=== PATIENT | female | born 2000 | race Caucasian/White ===

== ENCOUNTER 2022-10-11 14:19 | Emergency (ER) | payer SELFPAY ==
[2022-10-11 14:26] VITALS: BP 151/108; PULSE 113; O2SAT 98
--- NOTE | 2022-10-11 14:34 | ED.RECABL ---
HPI - Recheck/Abnormal Lab/Rx <SONU Andersen - Last Filed: 10/11/22 15:09> General Chief Complaint: Recheck/Abnormal Lab/Rx Stated Complaint: fit for fdc Time Seen by Provider: 10/11/22 14:26 Source: police Mode of arrival: other History of Present Illness HPI narrative: This is a 22-year-old female who comes in with law enforcement for medical clearance for incarceration as patient has injury to her left forearm from cutting herself. She states that this did not happen today it happened before and due to stressful life situations. She denies wanting to kill herself but states that she was trying to hurt herself. She is not on medications for mood, has not seen a therapist, denies any recent illness. Denies any other injuries or substance ingestion. She is tearful, anxious and there is no bleeding or wound dehiscence. Wound edges are still approximated and there are 4-5 scrapes on the medial forearm. Related Data Allergies Allergy/AdvReac Type Severity Reaction Status Date / Time No Known Drug Allergies Allergy Verified 10/11/22 14:25 Review of Systems <SONU Andersen - Last Filed: 10/11/22 15:09> Review of Systems ROS Unobtainable: All systems reviewed & are unremarkable except as noted in HPI and below Patient History <SONU Andersen - Last Filed: 10/11/22 15:09> Social History Smoking Status: Former smoker Smoking Status: Former smoker alcohol intake frequency: 0-2 drinks per day Substance Use Type: does not use Exam <SONU Andersen - Last Filed: 10/11/22 15:09> Narrative Exam Narrative: Reviewed vitals signs and nursing notes. General: cooperative, comfortable, in no acute distress, well groomed HEENT: symmetrical facial expressions, moist mucous membranes MSK: moves all extremities, neurovascularly intact, no weakness, normal tone Skin: brisk capillary refill, without pallor, 5 superficial cuts to the medial left forearm without dermis laceration, evidence of infection, or bleeding. Neuro: normal speech and cognition, A&O x3, ambulatory, clear speech Psych: mental status is grossly normal, congruent mood, normal affect, pleasant and cooperative Initial Vital Signs Initial Vital Signs: Vital Signs Pulse Rate 113 H 10/11/22 14:26 Blood Pressure 151/108 H 10/11/22 14:26 Pulse Oximetry 98 10/11/22 14:26 Oxygen Delivery Method 10/11/22 14:26 <Jennifer Howell DO - Last Filed: 10/20/22 03:34> Initial Vital Signs Initial Vital Signs: Vital Signs Pulse Rate 113 H 10/11/22 14:26 Blood Pressure 151/108 H 10/11/22 14:26 Pulse Oximetry 98 10/11/22 14:26 Oxygen Delivery Method 10/11/22 14:26 Course <SONU Andersen - Last Filed: 10/11/22 15:09> Vital Signs Vital signs: Vital Signs - 8 hr 10/11/22 14:26 Pulse Rate 113 H Blood Pressure 151/108 H Pulse Oximetry 98 Oxygen Delivery Method Room Air <Jennifer Howell DO - Last Filed: 10/20/22 03:34> Vital Signs Vital signs: Vital Signs - 8 hr 10/11/22 14:26 Pulse Rate 113 H Blood Pressure 151/108 H Pulse Oximetry 98 Oxygen Delivery Method Room Air MDM - Recheck/Abnormal Lab/Rx <SONU Andersen - Last Filed: 10/11/22 15:09> MDM Narrative Medical decision making narrative: Chief Complaint: Fit for fdc, self-inflicted harm Independent historian: Patient Differential diagnoses include but are not limited to: Wound infection, laceration of the dermis, multiple lacerations, multiple injuries I have independently reviewed the patient's vital signs and nursing notes as well as prior records if available. Course of care: Patient is brought in by law enforcement for evaluation of the cuts on her forearm prior to incarceration. Patient endorses cutting herself with attempt to self-harm. She denies any other injuries, she is medically cleared for incarceration, no evidence of infection, no need for suture repair. Encourage patient to follow up with her primary care provider as she endorses that her IUD is 6 years old and she needs to have it out. Social considerations that may affect disposition: none Questions are addressed and there is agreement with the plan and for follow-up. Patient is appropriate for outpatient management. MIPS: This encounter doesn't have any diagnosis' associated with MIPS criteria. Discharge Plan Departure Patient Disposition: Home Clinical Impression: Medical clearance for incarceration, Deliberate self-cutting Instructions: Self-Harm Activity Restrictions/Additional Instructions: *You have been diagnosed with medical evaluation of your left arm injury due to self-harm. I encourage you to follow-up with your primary care provider after all of this for a referral to a therapist, and to check in with you about your mood and depression. Please be safe, avoid coping in ways that hurt yourself or could harm others. I wish you the best, you can use a topical antibiotic ointment for open areas as needed. Cool compresses will be helpful. Medication might be helpful for you to get through some of the stresses, please have your IUD removed as it has it is effective use. *What to do: *Please continue to take your regular medications as directed. [ ] New medication prescriptions sent to your pharmacy: [ ] [ ] New medication written as a paper prescription [ x] No new medications given *Please follow up with your primary care provider in 2-3 days, call for an appointment. Let them know you were seen in the Emergency Department and that we asked that you be seen for follow-up. We will electronically transmit a record of today's note if your PCP is in our system *If you do not have a primary care provider please contact [phone] to establish care with one of [facility] primary care providers. *Return to Emergency Department if you should have any new, worsening, or concerning symptoms, such as [fever greater than 101F, chills, worsening pain, persistent vomiting or other bothersome symptoms]. Stand Alone Forms: Patient Portal/API <Jennifer Howell, - Last Filed: 10/20/22 03:34> [facility] ED Attending Eddieature Attestation: I was immediately available in the department for consultation. Documentation has been reviewed.
== END 2022-10-11 14:44 | disposition home or self-care (01) ==
PROVIDERS: Emergency Provider Nurse Practitioner Critical Care Medicine
DX: Z00.8 Encounter for other general examination (principal); S59.912A Unspecified injury of left forearm, initial encounter
CPT/HCPCS: 99281